=== PATIENT | male | born 1985 | race Caucasian/White ===

== ENCOUNTER 2019-05-08 12:36 | Emergency (ER) | payer OTHER ==
[~2019-05-08] VITALS: Ht 167.6 cm; Wt 74.8 kg
[2019-05-08] MEDS ORDERED: FLEXERYL (13:27)
[2019-05-08] MEDS ORDERED: NORFLEX (13:27)
[2019-05-08] MEDS ORDERED: ZITHROMAX500 MG PO (16:27)
== END 2019-05-08 16:38 | disposition home or self-care (01) ==
LOC: ER 12:36
DX: J03.90 Acute tonsillitis, unspecified (principal)

== ENCOUNTER 2019-08-20 12:36 | Emergency (ER) | payer OTHER ==
[~2019-08-20] VITALS: Ht 195.6 cm; Wt 77.1 kg
[~2019-08-20 12:36] MED LIST: FLEXERYL; NORFLEX; ZITHROMAX500 MG PO
[2019-08-20] MEDS ORDERED: EPIDIOLEX100 MG/1 M (12:53)
== END 2019-08-20 13:25 | disposition home or self-care (01) ==
LOC: ER 12:36
DX: J03.80 Acute tonsillitis due to other specified organisms (principal)